=== PATIENT | female | born 1970 | race Caucasian/White ===

== ENCOUNTER 2017-11-23 04:40 | Emergency (ER) | payer OTHER ==
[~2017-11-23] VITALS: Ht 160 cm; Wt 90.7 kg
[~2017-11-23 04:40] MED LIST: Bactrim Ds Tab1 EACH PO; CLON.1 PO; Catapres0.1 MG PO; Cleocin HCl300 MG PO; FELDENE PO; FERR325 PO; HYDACE10B PO; LAMO100 PO; LORA10 PO; LOSA25 PO; LOSA50 PO; Mobic7.5 MG PO; Naprosyn500 MG PO; Norco 5-325 Ta1 EACH PO; OMEP20ER PO; OXYC1TAB11 PO; PROM25 PO; Percocet 5-3251 EACH PO; SOMA350 MG PO; VENLAFAXINE HC150 MG PO; ZOLP10 PO; Zofran4 MG PO
[2017-11-23 05:14] LABS: BASOPHILS ABSOLUTE AUTO 0.01 K/mm3 (0.00-0.23); BASOPHILS PERCENT AUTO 0 % (0-2); EOSINOPHILS ABSOLUTE AUTO 0.07 K/mm3 (0.00-0.68); EOSINOPHILS PERCENT AUTO 1 % (0-6); Hematocrit 38.6 % (33.0-51.0); Hemoglobin 12.5 g/dL (11.5-16.0); IMMATURE GRAN ABSOLUTE AUTO 0.05 K/mm3 (0.00-0.10); IMMATURE GRAN PERCENT AUTO 1 % (0-1); LYMPHOCYTES ABSOLUTE AUTO 0.69 K/mm3 (0.84-5.20); LYMPHOCYTES PERCENT AUTO 7 % (21-46); MONOCYTES ABSOLUTE AUTO 0.26 K/mm3 (0.16-1.47); MONOCYTES PERCENT AUTO 3 % (4-13); Mean Corpuscular HGB 30.1 pg (26.0-34.0); Mean Corpuscular HGB Conc 32.4 g/dL (31.5-36.5); Mean Corpuscular Volume 93 fL (80-100); NEUTROPHILS ABSOLUTE AUTO 8.48 K/mm3 (1.96-9.15); NEUTROPHILS PERCENT AUTO 89 % (41-73); Platelet Count 220 K/mm3 (150-400); RDW Coefficient Variation 13.5 % (11.7-14.2); RDW Standard Deviation 45.6 fL (35.1-46.3); Red Blood Cell Count 4.15 M/mm3 (3.80-5.20); White Blood Cell Count 9.56 K/mm3 (4.00-11.30)
[2017-11-23 05:19] LABS: Source, Urine Clean Catch
[2017-11-23 05:23] LABS: Bilirubin, Urine Neg (Neg); Blood, Urine 4+ (Neg); Glucose Qualitative, Urine Neg (Neg); Ketones, Urine Neg (Neg); Leukocyte Esterase, Urine 1+ (Neg); Nitrite, Urine Pos (Neg); Protein, Urine 2+ (Neg); Urobilinogen, Urine NORM (Normal)
[2017-11-23 05:37] LABS: Appearance, Urine Hazy (Clear); Color, Urine Yellow (P-Yellow)
[2017-11-23 05:38] LABS: Bacteria Many /hpf; Red Blood Cells, Urine 0-2 /hpf (0-2); Squamous Epithelial Cells Few /hpf (Few); White Blood Cells, Urine 25-50 /hpf (0-5)
[2017-11-23 05:42] LABS: Alanine Aminotransfer (ALT/SGP 21 U/L (12-78); Albumin, Blood 3.3 g/dL (3.4-5.0); Albumin/Globulin Ratio 0.9 (0.8-1.8); Alk Phos 120 U/L (50-136); Anion Gap 8 mmol/L (6-16); Aspartate Aminotrans (AST/SGOT 15 U/L (12-37); Bilirubin, Total 0.6 mg/dL (0.1-1.0); Blood Urea Nitrogen 5 mg/dL (8-24); Bun/Creatinine Ratio 7.6 (12.0-20.0); CO2, Blood 28 mmol/L (21-32); Calcium, Blood 8.9 mg/dL (8.5-10.1); Chloride, Blood 104 mmol/L (98-108); Creatinine, Blood 0.66 mg/dL (0.40-1.00); Globulin, Blood 3.6 g/dL (2.2-4.0); Glomerular Filtration Rate >60 (60-); Glucose, Blood 119 mg/dL (70-99); Potassium, Blood 3.9 mmol/L (3.5-5.5); Sodium, Blood 140 mmol/L (136-145); Total Protein, Blood 6.9 g/dL (6.4-8.2)
[2017-11-23] MEDS ORDERED: METO100ER PO (05:42)
[2017-11-23] MEDS ORDERED: MELO7.5 PO (05:42)
[2017-11-23] MEDS ORDERED: Norco 5-325 Ta1 EACH PO (06:03)
[2017-11-23] MEDS ORDERED: LEVFLO500 PO (06:03)
== END 2017-11-23 06:20 | disposition home or self-care (01) ==
LOC: ER 04:40
PROVIDERS: Emergency Medicine
DX: N39.0 Urinary tract infection, site not specified (principal); I10 Essential (primary) hypertension
CPT/HCPCS: 36415; 71046; 80053; 81001; 83605; 85025; 87077; 87086; 87186; 96374; 99283; J3010; P9612

== ENCOUNTER 2024-02-05 08:34 | Observation (INO) | payer OTHER ==
[~2024-02-05] VITALS: Ht 160 cm; Wt 102.5 kg
[~2024-02-05 08:34] MED LIST changes: +AMIT50 PO; +Catapres0.2 MG PO; +IBUP400 PO; +LEVFLO500 PO; +MELO7.5 PO; +METO100ER PO
[2024-02-05] MEDS ORDERED: NS 1,000 ML IV SCH (08:45)
[2024-02-05] MEDS ORDERED: Ketorolac Tromethamine 30mg Vial IV ONE (08:45)
[2024-02-05] MEDS ORDERED: EUTHYROX125 MCG PO (08:51)
[2024-02-05 09:10] LABS: BASOPHILS ABSOLUTE AUTO 0.02 K/mm3 (0.00-0.23); BASOPHILS PERCENT AUTO 0 % (0-2); EOSINOPHILS ABSOLUTE AUTO 0.04 K/mm3 (0.00-0.68); EOSINOPHILS PERCENT AUTO 0 % (0-6); Hematocrit 29.6 % (33.0-51.0); Hemoglobin 9.3 g/dL (11.5-16.0); IMMATURE GRAN ABSOLUTE AUTO 0.05 K/mm3 (0.00-0.10); IMMATURE GRAN PERCENT AUTO 0 % (0-1); LYMPHOCYTES ABSOLUTE AUTO 1.05 K/mm3 (0.84-5.20); LYMPHOCYTES PERCENT AUTO 9 % (21-46); MONOCYTES ABSOLUTE AUTO 0.91 K/mm3 (0.16-1.47); MONOCYTES PERCENT AUTO 8 % (4-13); Mean Corpuscular HGB 26.6 pg (26.0-34.0); Mean Corpuscular HGB Conc 31.4 g/dL (31.5-36.5); Mean Corpuscular Volume 85 fL (80-100); NEUTROPHILS ABSOLUTE AUTO 9.54 K/mm3 (1.96-9.15); NEUTROPHILS PERCENT AUTO 82 % (41-73); RDW Coefficient Variation 16.6 % (11.7-14.2); RDW Standard Deviation 50.4 fL (35.1-46.3); White Blood Cell Count 11.61 K/mm3 (4.00-11.30)
[2024-02-05 09:13] LABS: Albumin, Blood 2.2 g/dL (3.4-5.0); Albumin/Globulin Ratio 0.5 (0.8-1.8); Bilirubin, Total 0.5 mg/dL (0.1-1.0); Bun/Creatinine Ratio 10.2 (12.0-20.0); Calcium, Blood 8.2 mg/dL (8.5-10.1); Creatinine, Blood 0.69 mg/dL (0.40-1.00); Globulin, Blood 4.2 g/dL (2.2-4.0); Magnesium, Blood 1.7 mg/dL (1.6-2.4); Potassium, Blood 3.6 mmol/L (3.5-5.5); Total Protein, Blood 6.4 g/dL (6.4-8.2)
[2024-02-05] MEDS ORDERED: Morphine Sulfate 4 MG/1 ML Injection IV ONE (09:55)
[2024-02-05 09:58] LABS: Mean Platelet Volume 9.4 fL (9.1-12.4); Platelet Count 280 K/mm3 (150-400)
[2024-02-05 10:02] LABS: Influenza A, PCR NEGATIVE (NEGATIVE); Influenza B, PCR NEGATIVE (NEGATIVE); Resp Syncytial Virus, PCR NEGATIVE (NEGATIVE); SARS-Cov-2 (COVID-19) PCR, MMC NEGATIVE (NEGATIVE)
[2024-02-05] MEDS ORDERED: HYDROmorphone HCl/Pf 1MG SYR IV ONE (11:15)
[2024-02-05] MEDS ORDERED: Colchicine 0.6 MG TAB PO ONE ×2 (11:15→23:00)
[2024-02-05] MEDS ORDERED: Ketorolac Tromethamine 15mg Vial IV PRN (14:40)
--- NOTE | 2024-02-05 16:38 | NUR ---
PT ARRIVE TO ROOM 332 FROM ED 1636, ORIENTED TO ROOM AND SET UP. STATES MIDSTERNAL CHEST PRESURE IS ABOUT 6/10, CONSTANT, HURTS MORE WHEN LAYING FLAT. ORIENTED TO CALL LIGHT, INSTRUCTED TO CALL FOR INCREASE IN CHEST PAIN OR SOB. CALLED FOR TELE. AT BEDSIDE, SUPPORTIVE IN CARE.
[2024-02-05 16:39] VITALS: BP 131/85
[2024-02-05] MEDS ORDERED: HYDROmorphone HCl/Pf 1MG SYR IV PRN (17:20)
[2024-02-05] MEDS ORDERED: HYDCHL12.5 PO (19:56)
[2024-02-05 20:49] VITALS: BP 138/83
[2024-02-05] MEDS ORDERED: Amitriptyline HCl 50 MG Tab PO SCH (21:00)
[2024-02-06 02:51] VITALS: BP 131/81
[2024-02-06 05:53] LABS: BASOPHILS ABSOLUTE AUTO 0.01 K/mm3 (0.00-0.23); BASOPHILS PERCENT AUTO 0 % (0-2); EOSINOPHILS PERCENT AUTO 3 % (0-6); Hematocrit 27.9 % (33.0-51.0); Hemoglobin 8.5 g/dL (11.5-16.0); IMMATURE GRAN ABSOLUTE AUTO 0.03 K/mm3 (0.00-0.10); IMMATURE GRAN PERCENT AUTO 0 % (0-1); LYMPHOCYTES PERCENT AUTO 15 % (21-46); MONOCYTES ABSOLUTE AUTO 0.69 K/mm3 (0.16-1.47); MONOCYTES PERCENT AUTO 9 % (4-13); Mean Corpuscular HGB 26.9 pg (26.0-34.0); Mean Corpuscular HGB Conc 30.5 g/dL (31.5-36.5); Mean Corpuscular Volume 88 fL (80-100); Mean Platelet Volume 9.2 fL (9.1-12.4); NEUTROPHILS ABSOLUTE AUTO 5.55 K/mm3 (1.96-9.15); NEUTROPHILS PERCENT AUTO 73 % (41-73); Platelet Count 279 K/mm3 (150-400); RDW Coefficient Variation 16.3 % (11.7-14.2); RDW Standard Deviation 52.6 fL (35.1-46.3); Red Blood Cell Count 3.16 M/mm3 (3.80-5.20); White Blood Cell Count 7.58 K/mm3 (4.00-11.30)
[2024-02-06] MEDS ORDERED: Levothyroxine Sodium 0.15 MG Tab PO SCH (06:00)
--- NOTE | 2024-02-06 06:18 | NUR ---
SHIFT SUMMARY: PATIENT IS A&OX4, VSS, PATIENT CONTINUES TO REPORT MID STERNAL PAIN. DILAUDID IV WAS GIVEN X1 WITH GOOD EFFECT. TELEMETRY IS NSR, WILL CONTINUE TO MONITOR.
[2024-02-06 06:43] LABS: Albumin, Blood 1.9 g/dL (3.4-5.0); Albumin/Globulin Ratio 0.5 (0.8-1.8); Bilirubin, Total 0.3 mg/dL (0.1-1.0); Bun/Creatinine Ratio 10.2 (12.0-20.0); Calcium, Blood 8.6 mg/dL (8.5-10.1); Creatinine, Blood 0.69 mg/dL (0.40-1.00); Globulin, Blood 3.9 g/dL (2.2-4.0); Potassium, Blood 3.6 mmol/L (3.5-5.5); Total Protein, Blood 5.8 g/dL (6.4-8.2)
--- NOTE | 2024-02-06 06:52 | NUR ---
RESPIRATORY: PATIENT WAS STARTED ON AN INCENTIVE SPIROMETER. EDUCATION WAS GIVEN, ABLE TO ACHIEVE 1500MM X5.
[2024-02-06 07:45] VITALS: BP 114/71
[2024-02-06] MEDS ORDERED: Enoxaparin 40 MG/0.4 ML SYR SC SCH (09:00)
[2024-02-06] MEDS ORDERED: Colchicine 0.6 MG TAB PO SCH (09:00)
[2024-02-06] MEDS ORDERED: Losartan Potassium 50 MG Tab PO SCH (09:00)
[2024-02-06] MEDS ORDERED: Venlafaxine HCl 75 MG CapCR PO SCH (09:00)
[2024-02-06] MEDS ORDERED: Metoprolol Succinate 50 MG TABCR PO SCH (09:00)
[2024-02-06] MEDS ORDERED: HYDROcodone 5-APAP 325 TAB PO PRN (09:20)
[2024-02-06] MEDS ORDERED: Naproxen 500 MG Tab PO PRN (09:25)
--- NOTE | 2024-02-06 13:20 | NUR ---
Upon receiving a referral for spiritual care, I visited the patient. Her spouse and dtr are present. Patient tells me about her medical problems and the plan moving forward. She explains about her fears. I provided anxiety containment and prayer. Patient responded well and showed signs of greater peace.
[2024-02-06 14:30] VITALS: BP 115/85
[2024-02-06] MEDS ORDERED: COLCHICINE0.6 MG PO (14:49)
[2024-02-06] MEDS ORDERED: Norco 5-325 Ta1 EACH PO (14:50)
--- NOTE | 2024-02-06 15:36 | NUR ---
PT DISCHARGED WITH DC INSTRUCTIONS, WHEELCHAIR OUT TO PRIVATE CAR. SENT HOME WITH HOME MED AMITRYPTOLINE. RX FAXED TO [facility]. PT HAD NORCO A FEW HOURS AGO AND STATES SHE HAS ADQ PAIN RELIEF.
== END 2024-02-06 15:09 | disposition home or self-care (01) ==
LOC: ER 08:34 → MEDS 08:35
PROVIDERS: Student in an Organized Health Care Education/Training Program; ADMIT Family Medicine
DX: I30.0 Acute nonspecific idiopathic pericarditis (principal); I10 Essential (primary) hypertension; E03.9 Hypothyroidism, unspecified; F32.A Depression, unspecified; D64.89 Other specified anemias; I31.39 Other pericardial effusion (noninflammatory); Z87.891 Personal history of nicotine dependence; Z98.84 Bariatric surgery status; Z79.899 Other long term (current) drug therapy
CPT/HCPCS: 0241U; 36415; 71046; 71260; 80053; 83735; 84484; 85025; 85049; 85379; 86140; 93005; 93010; 93306; 96361; 96374-59; 96375-59; 96376; 96376-59; 99285-25; A9270; G0378; J1170; J1650; J1885; J2270; J7030; Q9967

== ENCOUNTER 2024-03-24 03:49 | Emergency (ER) | payer OTHER ==
[~2024-03-24] VITALS: Ht 160 cm; Wt 91.2 kg
[~2024-03-24 03:49] MED LIST changes: +COLCHICINE0.6 MG PO; +EUTHYROX125 MCG PO; +HYDCHL12.5 PO; +METO50ER PO; +Prednisone10 MG PO
[2024-03-24] MEDS ORDERED: COLCRYS0.6 M1 PO (04:03)
[2024-03-24] MEDS ORDERED: Acetaminophen 325 MG TABLET PO ONE (04:10)
[2024-03-24 04:13] LABS: BASOPHILS ABSOLUTE AUTO 0.02 K/mm3 (0.00-0.23); BASOPHILS PERCENT AUTO 0 % (0-2); EOSINOPHILS ABSOLUTE AUTO 0.04 K/mm3 (0.00-0.68); EOSINOPHILS PERCENT AUTO 0 % (0-6); Hematocrit 36.4 % (33.0-51.0); Hemoglobin 11.2 g/dL (11.5-16.0); IMMATURE GRAN ABSOLUTE AUTO 0.05 K/mm3 (0.00-0.10); IMMATURE GRAN PERCENT AUTO 1 % (0-1); LYMPHOCYTES ABSOLUTE AUTO 1.15 K/mm3 (0.84-5.20); LYMPHOCYTES PERCENT AUTO 12 % (21-46); MONOCYTES ABSOLUTE AUTO 0.89 K/mm3 (0.16-1.47); MONOCYTES PERCENT AUTO 9 % (4-13); Mean Corpuscular HGB 26.2 pg (26.0-34.0); Mean Corpuscular HGB Conc 30.8 g/dL (31.5-36.5); Mean Corpuscular Volume 85 fL (80-100); Mean Platelet Volume 9.4 fL (9.1-12.4); NEUTROPHILS ABSOLUTE AUTO 7.71 K/mm3 (1.96-9.15); NEUTROPHILS PERCENT AUTO 78 % (41-73); Platelet Count 232 K/mm3 (150-400); RDW Coefficient Variation 17.9 % (11.7-14.2); RDW Standard Deviation 56.6 fL (35.1-46.3); Red Blood Cell Count 4.28 M/mm3 (3.80-5.20); White Blood Cell Count 9.86 K/mm3 (4.00-11.30)
[2024-03-24 04:32] LABS: Albumin, Blood 3.1 g/dL (3.4-5.0); Albumin/Globulin Ratio 0.8 (0.8-1.8); Bilirubin, Total 0.7 mg/dL (0.1-1.0); Bun/Creatinine Ratio 11.8 (12.0-20.0); Calcium, Blood 8.9 mg/dL (8.5-10.1); Creatinine, Blood 0.68 mg/dL (0.40-1.00); Globulin, Blood 3.7 g/dL (2.2-4.0); Potassium, Blood 3.4 mmol/L (3.5-5.5); Total Protein, Blood 6.8 g/dL (6.4-8.2)
[2024-03-24 05:05] LABS: Influenza A, PCR NEGATIVE (NEGATIVE); Influenza B, PCR NEGATIVE (NEGATIVE); Resp Syncytial Virus, PCR NEGATIVE (NEGATIVE); SARS-Cov-2 (COVID-19) PCR, MMC NEGATIVE (NEGATIVE)
[2024-03-24] MEDS ORDERED: Lactated Ringer's 1,000 ML IV ONE (05:15)
[2024-03-24 05:45] VITALS: BP 118/85
== END 2024-03-24 06:00 | disposition home or self-care (01) ==
LOC: ER 03:49
PROVIDERS: Student in an Organized Health Care Education/Training Program
DX: R07.2 Precordial pain (principal); E03.9 Hypothyroidism, unspecified; I10 Essential (primary) hypertension; Z86.79 Personal history of other diseases of the circulatory system; Z87.891 Personal history of nicotine dependence; Z79.52 Long term (current) use of systemic steroids; Z79.899 Other long term (current) drug therapy
CPT/HCPCS: 0241U; 71045; 80053; 84484; 85025; 93005; 93010; 96360; 99284-25; A9270; J7120